=== PATIENT | male | born 1960 | race Caucasian/White ===

== ENCOUNTER 2024-06-24 15:17 | Emergency (ER) | payer OTHER ==
[~2024-06-24] VITALS: Ht 172.7 cm; Wt 88.2 kg
[2024-06-24] MEDS ORDERED: METH-1164 PO (17:15)
[2024-06-24 17:49] VITALS: BP 128/58; TEMP 98; O2SAT 96
== END 2024-06-24 17:50 | disposition home or self-care (01) ==
LOC: M ED 15:17
DX: M54.30 Sciatica, unspecified side (principal); Z87.19 Personal history of other diseases of the digestive system; Z87.442 Personal history of urinary calculi